=== PATIENT | male | born 1980 | race Caucasian/White ===

== ENCOUNTER 2025-10-03 02:40 | Inpatient (IN) ==
--- NOTE | 2025-10-03 03:13 | Emergency Department Note ---
History of Present Illness General Chief complaint: Abdominal Pain Stated complaint: ABD PAIN UPPER LEFT,VOMITING Time Seen by Provider: 10/03/25 02:53 History of Present Illness Maximum Pain Intensity: 10 This 45-year-old male who has been to [facility] and [place] ER already this week presents ER for ongoing nausea vomiting and upper abdominal pain. Bilirubin was 3.7 yesterday at [facility]. Patient occasionally uses marijuana. Not daily. 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 Drug of choice was cocaine. He would like to a hepatitis C ordered. Patient states has been feeling more fatigued. He does vape. He has not seen a doctor in several years. He has had a recent knee infection was on antibiotics. He cannot recall his antibiotics. Chest pain, dyspnea, cough, congestion, diarrhea. He states earlier this year he had chronic diarrhea that is now resolved. He now has been vomiting for the past week and unable to tolerate fluids. Drug allergy to codeine. Nothing else. Patient denies appendix has been surgically removed. No other surgeries. Past Med/Surg History Problem List (Updated 10/03/25 @ 05:26 by Courtney Marin PA-C) Nausea & vomiting (Acute) Hyperbilirubinemia (Acute) Abdominal pain, acute (Acute) Social History Smoking Status: Current every day smoker Tobacco Type: E-cigarettes / Vaping Preferred Language: Nauruan Feels Safe at Home: Yes Review of Systems A total of 10 systems reviewed and were otherwise negative Physical Exam Vital Signs Vital Signs - 24 hr 10/03/25 02:44 10/03/25 03:07 10/03/25 03:57 Temperature 37.1 C Temperature Source Temporal Artery Scan Pulse Rate 112 H 113 H 100 H Pulse Rate [Apical] Respiratory Rate 18 18 Respiratory Effort / Characteristics Non-Labored Spontaneous Respiratory Depth Normal Respiratory Pattern Regular Blood Pressure 148/98 H Blood Pressure [Right Arm] Blood Pressure Mean 114 Blood Pressure Mean [Right Arm] Blood Pressure Position Sitting Pulse Oximetry 99 95 Oxygen Delivery Method Room Air Room Air Sepsis Recent Fever Within 48 Hours No Sepsis New/Unexplained Change in Mental Status N/A Sepsis Action Taken by Nursing No Action Required 10/03/25 05:05 Temperature Temperature Source Pulse Rate Pulse Rate [Apical] 102 H Respiratory Rate 16 Respiratory Effort / Characteristics Respiratory Depth Normal Respiratory Pattern Blood Pressure Blood Pressure [Right Arm] 157/108 H Blood Pressure Mean Blood Pressure Mean [Right Arm] 124 Blood Pressure Position Pulse Oximetry Oxygen Delivery Method Sepsis Recent Fever Within 48 Hours Sepsis New/Unexplained Change in Mental Status Sepsis Action Taken by Nursing VITALS: Vitals are noted on the nurse's note and reviewed by myself. Vital signs stable. GENERAL: White male jaundiced appearing, in no acute distress, nondiaphoretic, well-developed well-nourished. SKIN: Capillary reflex less than 2 seconds. HEENT: Normocephalic. PERRLA. EOMI. icterus present, nares patent. Mucous membranes moist. Neck is supple without nuchal rigidity. HEART: Regular rate and rhythm LUNGS: Clear to auscultation bilaterally without wheezes, rales or rhonchi. No retractions or accessory muscle use. ABDOMEN: Positive bowel sounds x 4. Normal tympanic percussion. Soft, diffusely tender to palpation, without masses or organomegaly. Oliver sign negative. No guarding or rebound tenderness. no CVA tenderness MUSCULOSKELETAL: No gross musculoskeletal defects. NEURO: Patient was alert and oriented to person place and time. No focal neurological deficits. Course Administered Medications Discontinued Medications Diphenhydramine HCl (Diphenhydramine 50 Mg/Ml Vial) 25 mg IV NOW STA Stop: 10/03/25 03:08 Last Admin: 10/03/25 03:15 Dose: 25 mg Documented By: ROC Droperidol (Droperidol 5 Mg/2 Ml Vial) 1.25 mg IV ONE STA Stop: 10/03/25 03:08 Last Admin: 10/03/25 03:15 Dose: 1.25 mg Documented By: ROC Sodium Chloride (Nss) 1,000 mls @ 999 mls/hr IV .Q1H1M ONE Stop: 10/03/25 04:07 Last Infusion: 10/03/25 05:01 Dose: Infused Documented By: [email or web address] Admin: 10/03/25 03:16 Dose: 999 mls/hr Documented By: ROC Famotidine (Pepcid 20mg Iv Push) 20 mg in 5 mls @ 2.5 mls/min IV NOW STA Stop: 10/03/25 03:08 Last Admin: 10/03/25 03:15 Dose: 2.5 mls/min Documented By: ROC Ioversol (Optiray 320 125ml) 125 ml IV ONCE ONE Stop: 10/03/25 03:43 Last Admin: 10/03/25 03:42 Dose: 118 ml Documented By: CARLOS Medical Decision Making Medical Records Attestation: I reviewed the patient's medical records. Home Medications Current Medication List: was personally reviewed by me Laboratory Data Attestation: I reviewed the patient's lab results. 10/03/25 03:18 10/03/25 03:18 Lab Results 10/03/25 10/03/25 10/03/25 Range/Units 03:18 03:25 03:50 WBC 7.02 (4.8-10.8) K/ul RBC 5.68 (4.70-6.10) M/uL Hgb 15.9 (14.0-18.0) g/dL POC Hgb 16.3 (14.0-18.0) g/dl Hct 45.6 (42.0-52.0) % POC Hct 48 (42-52) % MCV 80.3 (80.0-100.0) fL MCH 30.6 (25.0-34.0) pg MCHC 38.1 H (32.0-36.0) g/dL RDW Std Deviation 33.6 L (36.4-46.3) fL RDW Coeff of Haja 11.8 (11.5-14.5) % Plt Count 284 (130-400) K/uL MPV 9.8 (9.4-12.4) fL Immature Gran % (Auto) 0.3 % Neut % (Auto) 72.0 % Lymph % (Auto) 21.2 % Motley % (Auto) 5.8 % Eos % (Auto) 0.1 % Baso % (Auto) 0.6 % Neut # (Auto) 5.05 (1.40-6.50) K/uL Lymph # (Auto) 1.49 (1.20-3.40) K/uL Motley # (Auto) 0.41 (0.11-0.59) K/uL Eos # (Auto) 0.01 (0.00-0.50) K/uL Baso # (Auto) 0.04 (0.00-0.20) K/uL Immature Gran # (Auto) 0.02 (0.01-0.20) K/uL Polychromasia 1+ PT 14.1 H (9.0-12.0) Seconds INR 1.4 H (0.9-1.1) APTT 21 (21-31) Seconds PTT Ratio 0.8 POC Sodium 136 (135-144) mmol/L Sodium 134 L (136-145) mmol/L POC Potassium 4.1 (3.3-5.0) mmol/L Potassium 4.0 (3.5-5.1) mmol/L POC Chloride 95 L (101-112) mmol/L Chloride 97 L (98-107) mmol/L Carbon Dioxide 27 (21-32) mmol/L POC Total CO2 24 (24-31) mmol/L Anion Gap 10 (3-11) POC Anion Gap 22.0 (16-25) mmol/L POC BUN 9 (7-18) mg/dl BUN 10 (6-23) mg/dl Creatinine 0.78 (0.6-1.4) mg/dl POC Creatinine 0.8 (0.6-1.3) mg/dl Est Cr Clr Drug Dosing 128.5 ml/min eGFR 110.69 BUN/Creatinine Ratio 12.8 (10-20) Glucose 145 H (70-99(Fasting)) mg/dl POC Glucose (other) 141 H (70-99) mg/dl Calcium 9.8 (8.6-10.3) mg/dl POC Ioniz Calcium Reynaldo 1.11 L (1.12-1.32) mmol/l Magnesium 1.9 (1.7-2.4) mg/dl Total Bilirubin 4.2 H (0.2-1.0) mg/dl AST 24 (13-39) U/L ALT 26 (7-52) U/L Alkaline Phosphatase 96 (34-104) U/L Troponin I High Sens 4.3 (0-20) pg/ml Total Protein 8.3 (6.0-8.3) gm/dl Albumin 4.9 (3.4-5.0) gm/dl Globulin 3.4 (2.5-4.0) gm/dl Albumin/Globulin Ratio 1.4 (0.9-2) Lipase 16 (11-82) U/L TSH 1.081 (0.300-4.500) uIu/ml Urine Color Urine Appearance (Clear) Urine pH (4.5-7.5) Ur Specific Matthews (1.000-1.030) Urine Protein (Negative) Urine Glucose (UA) (Negative) Urine Ketones (Negative) Urine Blood (Negative) Urine Nitrite (Negative) Urine Bilirubin (Negative) Urine Urobilinogen (Negative) Ur Leukocyte Esterase (Negative) Urine Comment Urine Opiates Screen (Neg) Ur Methadone, Qual (Neg) Urine Fentanyl Screen (Neg) Urine Barbiturates (Neg) Ur Phencyclidine (PCP) (Neg) U Amphetamin/Meth Scrn (Neg) MDMA (Ecstasy) Screen (Neg) U Benzodiazepines Scrn (Neg) Ur Cocaine Metabolite (Neg) U Marijuana (THC) Screen (Neg) EBV Capsid Ag IgG Ab Positive EBV Caps Ag IgG Sig Str 107.0 (< 18.0) U/mL EBV Capsid Ag IgM Ab Negative EBV Caps Ag IgM Sig Str < 10.0 (< 36.0) U/mL EBV Early Antigen IgG Negative (Negative) EBV EA Signal Strength < 5.0 (< 9.0) U/mL EBV Nuclear Antigen Ab Positive EBV Nucl Ag IgG Sig Str > 600.0 (< 18.0) U/mL EBV Interpretation See Comment Hep Bs Antigen Negative (Negative) Hepatitis C Antibody Prelim Positive A (Negative) Monoscreen Negative (Negative) 10/03/25 Range/Units 04:02 WBC (4.8-10.8) K/ul RBC (4.70-6.10) M/uL Hgb (14.0-18.0) g/dL POC Hgb (14.0-18.0) g/dl Hct (42.0-52.0) % POC Hct (42-52) % MCV (80.0-100.0) fL MCH (25.0-34.0) pg MCHC (32.0-36.0) g/dL RDW Std Deviation (36.4-46.3) fL RDW Coeff of Haja (11.5-14.5) % Plt Count (130-400) K/uL MPV (9.4-12.4) fL Immature Gran % (Auto) % Neut % (Auto) % Lymph % (Auto) % Motley % (Auto) % Eos % (Auto) % Baso % (Auto) % Neut # (Auto) (1.40-6.50) K/uL Lymph # (Auto) (1.20-3.40) K/uL Motley # (Auto) (0.11-0.59) K/uL Eos # (Auto) (0.00-0.50) K/uL Baso # (Auto) (0.00-0.20) K/uL Immature Gran # (Auto) (0.01-0.20) K/uL Polychromasia PT (9.0-12.0) Seconds INR (0.9-1.1) APTT (21-31) Seconds PTT Ratio POC Sodium (135-144) mmol/L Sodium (136-145) mmol/L POC Potassium (3.3-5.0) mmol/L Potassium (3.5-5.1) mmol/L POC Chloride (101-112) mmol/L Chloride (98-107) mmol/L Carbon Dioxide (21-32) mmol/L POC Total CO2 (24-31) mmol/L Anion Gap (3-11) POC Anion Gap (16-25) mmol/L POC BUN (7-18) mg/dl BUN (6-23) mg/dl Creatinine (0.6-1.4) mg/dl POC Creatinine (0.6-1.3) mg/dl Est Cr Clr Drug Dosing ml/min eGFR BUN/Creatinine Ratio (10-20) Glucose (70-99(Fasting)) mg/dl POC Glucose (other) (70-99) mg/dl Calcium (8.6-10.3) mg/dl POC Ioniz Calcium Reynaldo (1.12-1.32) mmol/l Magnesium (1.7-2.4) mg/dl Total Bilirubin (0.2-1.0) mg/dl AST (13-39) U/L ALT (7-52) U/L Alkaline Phosphatase (34-104) U/L Troponin I High Sens (0-20) pg/ml Total Protein (6.0-8.3) gm/dl Albumin (3.4-5.0) gm/dl Globulin (2.5-4.0) gm/dl Albumin/Globulin Ratio (0.9-2) Lipase (11-82) U/L TSH (0.300-4.500) uIu/ml Urine Color Yellow Urine Appearance Clear (Clear) Urine pH 7.5 (4.5-7.5) Ur Specific Matthews 1.027 (1.000-1.030) Urine Protein Negative (Negative) Urine Glucose (UA) Negative (Negative) Urine Ketones 1+ H (Negative) Urine Blood Negative (Negative) Urine Nitrite Negative (Negative) Urine Bilirubin Negative (Negative) Urine Urobilinogen Negative (Negative) Ur Leukocyte Esterase Negative (Negative) Urine Comment Urine Opiates Screen Neg (Neg) Ur Methadone, Qual Neg (Neg) Urine Fentanyl Screen Neg (Neg) Urine Barbiturates Neg (Neg) Ur Phencyclidine (PCP) Neg (Neg) U Amphetamin/Meth Scrn Pos H (Neg) MDMA (Ecstasy) Screen Neg (Neg) U Benzodiazepines Scrn Neg (Neg) Ur Cocaine Metabolite Neg (Neg) U Marijuana (THC) Screen Neg (Neg) EBV Capsid Ag IgG Ab EBV Caps Ag IgG Sig Str (< 18.0) U/mL EBV Capsid Ag IgM Ab EBV Caps Ag IgM Sig Str (< 36.0) U/mL EBV Early Antigen IgG (Negative) EBV EA Signal Strength (< 9.0) U/mL EBV Nuclear Antigen Ab EBV Nucl Ag IgG Sig Str (< 18.0) U/mL EBV Interpretation Hep Bs Antigen (Negative) Hepatitis C Antibody (Negative) Monoscreen (Negative) Imaging Data Attestation: I personally reviewed and interpreted this imaging study as follows: Radiologist's Impression: Abdomen/Pelvis CT 10/03/25 03:07 EXAM: CT abd pelvis IV con only CLINICAL HISTORY: abd pain, jaundice, history of IV drug use TECHNIQUE: Contiguous axial images were obtained from the level of the diaphragm to the pubic symphysis with intravenous contrast. Coronal and sagittal reconstructions were likewise performed and indicated to increase the sensitivity for detecting clinically relevant pathology. If IV contrast material had not been administered, the likelihood of detecting abnormalities relevant to the patient's condition would have been substantially decreased. CT scan was performed according to ALARA (as low as reasonably achievable). COMPARISON: None. FINDINGS: The visualized lung bases are clear. The liver is normal in size and reduced attenuation. No focal liver lesions are seen. There is no intra or extrahepatic biliary ductal dilatation. Hepatic vasculature is patent. The gallbladder is present. The spleen is enlarged in size, measuring about 14 cm. The pancreas, and adrenal glands are unremarkable. The kidneys are normal in size and attenuation. There is no hydronephrosis or perinephric fat stranding. No renal calculi or renal masses are identified. Few simple cortical cyst are noted in left kidneys The ureters are normal in caliber and no ureteral calculi are seen. The bladder shows diffuse wall thickening with subtle perivesical fat stranding - suggest possibility of cystitis- urine analysis correlation suggested Pelvic viscera are unremarkable. No focal or diffuse bowel wall thickening or evidence of bowel obstruction is identified. No imaging evidence of appendicitis. Abdominal and pelvic vasculature is patent. No adenopathy or fluid collections are seen. No aggressive appearing osseous lesions are identified. IMPRESSION: Hepatomegaly with hepatic steatosis Mild splenomegaly. The bladder shows diffuse wall thickening with subtle perivesical fat stranding - suggest possibility of cystitis- urine analysis correlation suggested No other abnormality seen. Electronically signed by Johnnie Elena 10-03-2025 04:21 AM Chest CTA 10/03/25 03:07 EXAM: CT angio chest PE protocol CLINICAL HISTORY: PE TECHNIQUE: Contiguous axial images were obtained from the neck base through the upper abdomen following intravenous administration of iodinated contrast material. Angiographic images were processed, 3D MIP images were acquired for interpretation. If IV contrast material had not been administered, the likelihood of detecting abnormalities relevant to the patient's condition would have been substantially decreased. Coronal and sagittal 3-D MIPs were likewise performed and indicated to increase the sensitivity of detectin diffuse clinically relevant pathology. CT scan was performed according to ALARA (as low as reasonably achievable). COMPARISON: None. FINDINGS: 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 Tiny calcified granuloma is noted in right lower lobe. Adequate contrast bolus without evidence of pulmonary embolism. The central airways are patent. The lungs are clear. No pleural effusion. The heart, aorta, and pulmonary arteries are of normal size and configuration. There are no appreciable coronary artery and aortic atherosclerotic calcifications. No pericardial effusion is identified. The thyroid is unremarkable. No mediastinal, hilar, or axillary lymphadenopathy is noted. No suspicious lytic or sclerotic osseous lesions are identified. 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 Tiny calcified granuloma is noted in right lower lobe. No evidence of pulmonary embolism or pulmonary disease. Electronically signed by Johnnie Elena 10-03-2025 04:11 AM MDM Narrative Prior records/ancillary studies reviewed. Triage Nursing notes reviewed. Additional history obtained from family. The patient's history was concerning for abdominal pain. Differential diagnosis: Etiologies such as appendicitis, diverticulitis, PUD, biliary pathology, UTI, pancreatitis, obstruction, mesenteric ischemia, aortic pathology, infections, inflammatory bowel disease, renal colic, as well as others were entertained. Physical examination findings: As above. ER treatment provided: An order was placed for continuous cardiac monitoring. The monitor shows a rate of 60-100 with a sinus rhythm per my Independent interpretation. IV fluids, droperidol, Pepcid and Benadryl were ordered On reassessment the patient felt better. Diagnostics interpreted by me: ECG: Ordered for abdominal pain EKG: Poor baseline, normal sinus, normal intervals, no acute ST-T wave changes, rate of 114. Impression sinus tachycardia poor baseline per my independent interpretation The labs Independently Interpreted by myself revealed elevated bilirubin. Preliminary screen for hep C positive. Amphetamines/meth positive and drug screen. No worrisome leukocytosis, stable H&H, stable platelets No UTI Imaging studies: Imaging was reviewed and read by radiology Consultation: A consultation was placed with the hospitalist. The case was discussed and diagnostics were reviewed. The patient was evaluated in the ER for further treatment. Exam and history seem consistent with ongoing nausea and vomiting and abdominal pain with rising bilirubin. This could be related to his hepatitis C. This is the patient's fourth ER visit for the past 2 days. They are requesting admission. Medicine was consulted the case was discussed. Patient will be evaluated for admission. By the evaluation outlined above emergent etiologies such as appendicitis, diverticulitis, PUD, UTI, pancreatitis, obstruction, mesenteric ischemia, aortic pathology, inflammatory bowel disease, renal colic, as well as others were deemed relatively unlikely. The pt informed about the findings as listed above. All questions were answered and pleased with the treatment. The chart was completed utilizing [employer] Speech voice recognition software. Grammatical errors, random word insertions, pronoun errors, and incomplete sentences are an occassional consequence of this system due to software limitations, ambient noise, and hardware issues. Any formal questions or concerns about the content, text, or information contained within the body of this dictation should be directly addressed to the physician assistant professor of marine biology for clarification. Impression & Plan Abdominal pain, acute, Hyperbilirubinemia, Nausea & vomiting Discharge Plan Visit Data Chief Complaint: Abdominal Pain Stated Complaint: ABD PAIN UPPER LEFT,VOMITING ED Provider: Scarlet Eastman ED Midlevel Provider: Courtney Marin Discharge Problem: Abdominal pain, acute, Hyperbilirubinemia, Nausea & vomiting Patient Disposition: Admitted As Inpatient Condition: Good Forms Stand Alone Forms: [facility] Referrals Referrals: PCP,NO [Primary Care Provider] -
[2025-10-03] MEDS: FAMOTIDINE 20MG IV PUSH 20 MG/5 ML SYR IV STA (03:15)
[2025-10-03] MEDS: diphenhydrAMINE 50 MG/ML VIAL IV STA (03:15)
[2025-10-03] MEDS: DROPERIDOL 5 MG/2 ML VIAL IV STA (03:15)
[2025-10-03] MEDS: SODIUM CHLORIDE 0.9% 1,000 ML IV ONE (03:16)
[2025-10-03] MEDS: OPTIRAY 320 125ml IV ONE (03:42)
[2025-10-03 04:01] LABS: Alanine Aminotransferase 26.0 U/L (7-52); Albumin Level 4.9 gm/dl (3.4-5.0); Alkaline Phosphatase 96.0 U/L (34-104); Anion Gap 10.0 (3-11); Bilirubin,Total 4.2 mg/dl (0.2-1.0); Blood Urea Nitrogen 10.0 mg/dl (6-23); Calcium 9.8 mg/dl (8.6-10.3); Carbon Dioxide 27.0 mmol/L (21-32); Chloride 97.0 mmol/L (98-107); Creatinine Clr Calc Pharmacy 128.5 ml/min; Glucose 145.0 mg/dl (70-99(Fasting)); Lipase 16.0 U/L (11-82); Magnesium 1.9 mg/dl (1.7-2.4); Potassium 4.0 mmol/L (3.5-5.1); Sodium 134.0 mmol/L (136-145)
[2025-10-03 04:09] LABS: Albumin Globulin Ratio 1.4 (0.9-2); Globulin 3.4 gm/dl (2.5-4.0); Total Protein 8.3 gm/dl (6.0-8.3)
[2025-10-03 04:11] LABS: Appearance Urine Clear (Clear); Glucose Urine UA Negative (Negative)
--- NOTE | 2025-10-03 04:11 | CT Scan Report ---
EXAM: CT angio chest PE protocol CLINICAL HISTORY: PE TECHNIQUE: Contiguous axial images were obtained from the neck base through the upper abdomen following intravenous administration of iodinated contrast material. Angiographic images were processed, 3D MIP images were acquired for interpretation. If IV contrast material had not been administered, the likelihood of detecting abnormalities relevant to the patient's condition would have been substantially decreased. Coronal and sagittal 3-D MIPs were likewise performed and indicated to increase the sensitivity of detectin diffuse clinically relevant pathology. CT scan was performed according to ALARA (as low as reasonably achievable). COMPARISON: None. FINDINGS: 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 Tiny calcified granuloma is noted in right lower lobe. Adequate contrast bolus without evidence of pulmonary embolism. The central airways are patent. The lungs are clear. No pleural effusion. The heart, aorta, and pulmonary arteries are of normal size and configuration. There are no appreciable coronary artery and aortic atherosclerotic calcifications. No pericardial effusion is identified. The thyroid is unremarkable. No mediastinal, hilar, or axillary lymphadenopathy is noted. No suspicious lytic or sclerotic osseous lesions are identified. 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 Tiny calcified granuloma is noted in right lower lobe. No evidence of pulmonary embolism or pulmonary disease. Electronically signed by Johnnie Elena 10-03-2025 04:11 AM
[2025-10-03 04:15] LABS: INR 1.4 (0.9-1.1); Partial Thromboplastin Time 21 Seconds (21-31); Prothrombin Time 14.1 Seconds (9.0-12.0)
--- NOTE | 2025-10-03 04:21 | CT Scan Report ---
EXAM: CT abd pelvis IV con only CLINICAL HISTORY: abd pain, jaundice, history of IV drug use TECHNIQUE: Contiguous axial images were obtained from the level of the diaphragm to the pubic symphysis with intravenous contrast. Coronal and sagittal reconstructions were likewise performed and indicated to increase the sensitivity for detecting clinically relevant pathology. If IV contrast material had not been administered, the likelihood of detecting abnormalities relevant to the patient's condition would have been substantially decreased. CT scan was performed according to ALARA (as low as reasonably achievable). COMPARISON: None. FINDINGS: The visualized lung bases are clear. The liver is normal in size and reduced attenuation. No focal liver lesions are seen. There is no intra or extrahepatic biliary ductal dilatation. Hepatic vasculature is patent. The gallbladder is present. The spleen is enlarged in size, measuring about 14 cm. The pancreas, and adrenal glands are unremarkable. The kidneys are normal in size and attenuation. There is no hydronephrosis or perinephric fat stranding. No renal calculi or renal masses are identified. Few simple cortical cyst are noted in left kidneys The ureters are normal in caliber and no ureteral calculi are seen. The bladder shows diffuse wall thickening with subtle perivesical fat stranding - suggest possibility of cystitis- urine analysis correlation suggested Pelvic viscera are unremarkable. No focal or diffuse bowel wall thickening or evidence of bowel obstruction is identified. No imaging evidence of appendicitis. Abdominal and pelvic vasculature is patent. No adenopathy or fluid collections are seen. No aggressive appearing osseous lesions are identified. IMPRESSION: Hepatomegaly with hepatic steatosis Mild splenomegaly. The bladder shows diffuse wall thickening with subtle perivesical fat stranding - suggest possibility of cystitis- urine analysis correlation suggested No other abnormality seen. Electronically signed by Johnnie Elena 10-03-2025 04:21 AM
[2025-10-03 04:33] LABS: EBV Nuclear Antigen IgG Ab Positive; EBV Nuclear Antigen IgG Quant > 600.0 U/mL (< 18.0)
[2025-10-03 04:34] LABS: EBV Early Antigen IgG Ab Negative (Negative); EBV Early Antigen IgG Quant < 5.0 U/mL (< 9.0); EBV IgM Antibody Negative; EBV IgM Quant < 10.0 U/mL (< 36.0)
[2025-10-03 04:35] LABS: EBV IgG Antibody Positive; EBV IgG Quant 107.0 U/mL (< 18.0)
[2025-10-03 05:00] LABS: Hep B Surface Ag with confirm Negative (Negative)
[2025-10-03 05:00] LABS: Thyroid Stimulating Hormone 1.081 uIu/ml (0.300-4.500)
[2025-10-03 05:04] LABS: Hematocrit (blood only) 45.6 % (42.0-52.0); Hemoglobin 15.9 g/dL (14.0-18.0); Mean Corpuscular Hemoglobin 30.6 pg (25.0-34.0); Mean Corpuscular Volume 80.3 fL (80.0-100.0); Platelet Count 284 K/uL (130-400); RDW Standard Deviation 33.6 fL (36.4-46.3); Red Blood Count 5.68 M/uL (4.70-6.10); White Blood Count 7.02 K/ul (4.8-10.8)
[2025-10-03 05:05] LABS: Immature Granulocytes # (auto) 0.02 K/uL (0.01-0.20); Immature Granulocytes % (auto) 0.3 %; Polychromasia 1+
[2025-10-03 05:09] LABS: Hep C Ab Rflx HepCQuant RNA Prelim Positive (Negative)
[2025-10-03 05:18] LABS: Amphetamines+Metham, Urine Pos (Neg); MDMA (Ecstacy), Urine Neg (Neg); Marijuana, Urine Neg (Neg)
--- NOTE | 2025-10-03 06:14 | History & Physical Report ---
Date of Service October 03, 2025 Assessment & Plan (1) Nausea & vomiting: Plan: 45-year-old male with past medical history significant for diabetes, ADHD, anxiety, ongoing drug abuse, history of hypertension, history of hepatitis C in the past several years ago status post treatment presents with ongoing abdominal pain and nausea and vomiting. Patient having left upper quad abdominal pain going on for about a week now. Associated with nausea and vomiting. This is his third ER visit in the last 1 week. Was at [facility] and [facility] ER. Yesterday at [facility] ER bilirubin was 3.7. Seems patient occasionally use marijuana. History of IV drug abuse in the past with cocaine. Patient recently snorted amphetamines. Denies doing IV drug abuse currently. Vaping for last about a year. Denies any alcohol use. Has some headache. Has some dizziness. No runny nose or sore throat. No cough. No difficulty swallowing. Denies any chest pain. No shortness of breath. No diarrhea or constipation. Micturating okay. No rash. Afebrile. Hemodynamics are okay. Patient has been not going to doctors for long time as per the . Persistent nausea and vomiting and abdominal pain For about a week Bilirubin 4.2. AST 424. ALT 26. Alkaline phos was 96. CT abdomen pelvis shows mild splenomegaly. Hepatomegaly with hepatic steatosis. CTA chest aneurysm dilatation of ascending aorta 4 cm. No PE. Tiny calcified granuloma in right lower lobe. Will keep patient n.p.o., IV fluids, IV pain meds., IV antiemetics as needed IV Pepcid Will follow repeat labs Consult GI in a.m. for further recommendations Hepatitis C Follow-up HCVRNA History of hepatitis C infection many years ago as per and was treated and seemed to cleared Seems ongoing drug use GI consulted Ongoing drug abuse and vaping On Subutex Counseling Diabetes Cut back on Lantus 10 as currently patient is n.p.o. Hold metformin Sliding scale Will monitor History of ADHD and anxiety Currently not any meds. Hypertension Used to be on lisinopril in the past but currently not taking any medications Will monitor Clonidine as needed for now DVT prophylaxis Lovenox Disposition Medical floor Full code. History of Present Illness Chief Complaint: 45-year-old male with past medical history significant for diabetes, ADHD, anxiety, ongoing drug abuse, history of hypertension, history of hepatitis C in the past several years ago status post treatment presents with ongoing abdominal pain and nausea and vomiting. Patient having left upper quad abdominal pain going on for about a week now. Associated with nausea and vomiting. This is his third ER visit in the last 1 week. Was at [facility] and [facility] ER. Yesterday at [facility] ER bilirubin was 3.7. Seems patient occasionally use marijuana. History of IV drug abuse in the past with cocaine. Patient recently snorted amphetamines. Denies doing IV drug abuse currently. Vaping for last about a year. Denies any alcohol use. Has some headache. Has some dizziness. No runny nose or sore throat. No cough. No difficulty swallowing. Denies any chest pain. No shortness of breath. No diarrhea or constipation. Micturating okay. No rash. Afebrile. Hemodynamics are okay. Patient has been not going to doctors for long time as per the . Past medical history. As mentioned above. Past surgical history. Appendectomy. Dental procedures. Social history. Vaping. History of IV drug abuse. Currently snorting amphetamines. No alcohol use. Smokes marijuana. Family history. Mother had melanoma. Father has history of addiction. Primary Care Provider: NO PCP Home Medications Medication Instructions Recorded Confirmed Type buprenorphine HCl 8 mg sublingual 8 mg sublingual BID 10/03/25 10/03/25 History tablet insulin glargine 100 unit/mL (3 20 unit subcut DAILY 10/03/25 10/03/25 History mL) subcutaneous pen (Lantus Solostar U-100 Insulin) insulin lispro 100 unit/mL 1 sliding scale dose subcut 10/03/25 10/03/25 History subcutaneous pen USEASDIRECTD metformin 500 mg tablet 500 mg PO BID 10/03/25 10/03/25 History Past Med/Surg History Problem List (Updated 10/03/25 @ 05:26 by Courtney Marin PA-C) Nausea & vomiting (Acute) Hyperbilirubinemia (Acute) Abdominal pain, acute (Acute) Social History Smoking Status: Current every day smoker Tobacco Type: E-cigarettes / Vaping Preferred Language: Persian Feels Safe at Home: Yes Review of Systems Review of Systems: All systems reviewed & are unremarkable except as noted in HPI & below Physical Exam Physical Exam: General- Not in acute distress Head- atraumatic Eyes- PERRL. ENT- oropharynx clear Neck- supple, no JVD. Lungs- clear to auscultation no wheezing or crackles. Heart- regular rhythm; no murmur, no gallop. Abdomen- normal bowel sounds, soft, diffuse discomfort more in Left Upper quadrant, no distension Extremities- no pretibial edema, no erythema seen Neuro- alert, oriented PERRL, no facial palsy; no dysarthria; moves extremities Results & Data Results & Data Vital Signs (Past 12 Hours) Vital Signs Temp Pulse Pulse Resp BP BP Pulse Ox 10/03/25 05:05 102 H 16 157/108 H 10/03/25 03:57 100 H 18 95 10/03/25 03:07 113 H 10/03/25 02:44 37.1 C 112 H 18 148/98 H 99 O2 Del Method 10/03/25 05:05 10/03/25 03:57 Room Air 10/03/25 03:07 10/03/25 02:44 Room Air Diagnostic Findings Laboratory Results WBC 7.02 K/ul (4.8-10.8) 10/03/25 03:18 RBC 5.68 M/uL (4.70-6.10) 10/03/25 03:18 Hgb 15.9 g/dL (14.0-18.0) 10/03/25 03:18 POC Hgb 16.3 g/dl (14.0-18.0) 10/03/25 03:25 Hct 45.6 % (42.0-52.0) 10/03/25 03:18 POC Hct 48 % (42-52) 10/03/25 03:25 MCV 80.3 fL (80.0-100.0) 10/03/25 03:18 MCH 30.6 pg (25.0-34.0) 10/03/25 03:18 MCHC 38.1 g/dL (32.0-36.0) H 10/03/25 03:18 RDW Std Deviation 33.6 fL (36.4-46.3) L 10/03/25 03:18 RDW Coeff of Haja 11.8 % (11.5-14.5) 10/03/25 03:18 Plt Count 284 K/uL (130-400) 10/03/25 03:18 MPV 9.8 fL (9.4-12.4) 10/03/25 03:18 Immature Gran % (Auto) 0.3 % 10/03/25 03:18 Neut % (Auto) 72.0 % 10/03/25 03:18 Lymph % (Auto) 21.2 % 10/03/25 03:18 [place] % (Auto) 5.8 % 10/03/25 03:18 Eos % (Auto) 0.1 % 10/03/25 03:18 Baso % (Auto) 0.6 % 10/03/25 03:18 Neut # (Auto) 5.05 K/uL (1.40-6.50) 10/03/25 03:18 Lymph # (Auto) 1.49 K/uL (1.20-3.40) 10/03/25 03:18 [place] # (Auto) 0.41 K/uL (0.11-0.59) 10/03/25 03:18 Eos # (Auto) 0.01 K/uL (0.00-0.50) 10/03/25 03:18 Baso # (Auto) 0.04 K/uL (0.00-0.20) 10/03/25 03:18 Immature Gran # (Auto) 0.02 K/uL (0.01-0.20) 10/03/25 03:18 Polychromasia 1+ 10/03/25 03:18 PT 14.1 Seconds (9.0-12.0) H 10/03/25 03:18 INR 1.4 (0.9-1.1) H 10/03/25 03:18 APTT 21 Seconds (21-31) 10/03/25 03:18 PTT Ratio 0.8 10/03/25 03:18 POC Sodium 136 mmol/L (135-144) 10/03/25 03:25 Sodium 134 mmol/L (136-145) L 10/03/25 03:18 POC Potassium 4.1 mmol/L (3.3-5.0) 10/03/25 03:25 Potassium 4.0 mmol/L (3.5-5.1) 10/03/25 03:18 POC Chloride 95 mmol/L (101-112) L 10/03/25 03:25 Chloride 97 mmol/L (98-107) L 10/03/25 03:18 Carbon Dioxide 27 mmol/L (21-32) 10/03/25 03:18 POC Total CO2 24 mmol/L (24-31) 10/03/25 03:25 Anion Gap 10 (3-11) 10/03/25 03:18 POC Anion Gap 22.0 mmol/L (16-25) 10/03/25 03:25 POC BUN 9 mg/dl (7-18) 10/03/25 03:25 BUN 10 mg/dl (6-23) 10/03/25 03:18 Creatinine 0.78 mg/dl (0.6-1.4) 10/03/25 03:18 POC Creatinine 0.8 mg/dl (0.6-1.3) 10/03/25 03:25 Est Cr Clr Drug Dosing 128.5 ml/min 10/03/25 03:18 eGFR 110.69 10/03/25 03:18 BUN/Creatinine Ratio 12.8 (10-20) 10/03/25 03:18 Glucose 145 mg/dl (70-99(Fasting)) H 10/03/25 03:18 POC Glucose (other) 141 mg/dl (70-99) H 10/03/25 03:25 Calcium 9.8 mg/dl (8.6-10.3) 10/03/25 03:18 POC Ioniz Calcium Reynaldo 1.11 mmol/l (1.12-1.32) L 10/03/25 03:25 Magnesium 1.9 mg/dl (1.7-2.4) 10/03/25 03:18 Total Bilirubin 4.2 mg/dl (0.2-1.0) H 10/03/25 03:18 AST 24 U/L (13-39) 10/03/25 03:18 ALT 26 U/L (7-52) 10/03/25 03:18 Alkaline Phosphatase 96 U/L (34-104) 10/03/25 03:18 Troponin I High Sens 4.3 pg/ml (0-20) 10/03/25 03:18 Total Protein 8.3 gm/dl (6.0-8.3) 10/03/25 03:18 Albumin 4.9 gm/dl (3.4-5.0) 10/03/25 03:18 Globulin 3.4 gm/dl (2.5-4.0) 10/03/25 03:18 Albumin/Globulin Ratio 1.4 (0.9-2) 10/03/25 03:18 Lipase 16 U/L (11-82) 10/03/25 03:18 TSH 1.081 uIu/ml (0.300-4.500) 10/03/25 03:18 Urine Color Yellow 10/03/25 04:02 Urine Appearance Clear (Clear) 10/03/25 04:02 Urine pH 7.5 (4.5-7.5) 10/03/25 04:02 Ur Specific J[place] 1.027 (1.000-1.030) 10/03/25 04:02 Urine Protein Negative (Negative) 10/03/25 04:02 Urine Glucose (UA) Negative (Negative) 10/03/25 04:02 Urine Ketones 1+ (Negative) H 10/03/25 04:02 Urine Blood Negative (Negative) 10/03/25 04:02 Urine Nitrite Negative (Negative) 10/03/25 04:02 Urine Bilirubin Negative (Negative) 10/03/25 04:02 Urine Urobilinogen Negative (Negative) 10/03/25 04:02 Ur Leukocyte Esterase Negative (Negative) 10/03/25 04:02 Urine Comment 10/03/25 04:02 Urine Opiates Screen Neg (Neg) 10/03/25 04:02 Ur Methadone, Qual Neg (Neg) 10/03/25 04:02 Urine Fentanyl Screen Neg (Neg) 10/03/25 04:02 Urine Barbiturates Neg (Neg) 10/03/25 04:02 Ur Phencyclidine (PCP) Neg (Neg) 10/03/25 04:02 U Amphetamin/Meth Scrn Pos (Neg) H 10/03/25 04:02 MDMA (Ecstasy) Screen Neg (Neg) 10/03/25 04:02 U Benzodiazepines Scrn Neg (Neg) 10/03/25 04:02 Ur Cocaine Metabolite Neg (Neg) 10/03/25 04:02 U Marijuana (THC) Screen Neg (Neg) 10/03/25 04:02 EBV Capsid Ag IgG Ab Positive 10/03/25 03:18 EBV Caps Ag IgG Sig Str 107.0 U/mL (< 18.0) 10/03/25 03:18 EBV Capsid Ag IgM Ab Negative 10/03/25 03:18 EBV Caps Ag IgM Sig Str < 10.0 U/mL (< 36.0) 10/03/25 03:18 EBV Early Antigen IgG Negative (Negative) 10/03/25 03:18 EBV EA Signal Strength < 5.0 U/mL (< 9.0) 10/03/25 03:18 EBV Nuclear Antigen Ab Positive 10/03/25 03:18 EBV Nucl Ag IgG Sig Str > 600.0 U/mL (< 18.0) 10/03/25 03:18 EBV Interpretation See Comment 10/03/25 03:18 Hep Bs Antigen Negative (Negative) 10/03/25 03:50 Hepatitis C Antibody Prelim Positive (Negative) A 10/03/25 03:50 Monoscreen Negative (Negative) 10/03/25 03:18 Impressions Abdomen/Pelvis CT 10/03/25 03:07 EXAM: CT abd pelvis IV con only CLINICAL HISTORY: abd pain, jaundice, history of IV drug use TECHNIQUE: Contiguous axial images were obtained from the level of the diaphragm to the pubic symphysis with intravenous contrast. Coronal and sagittal reconstructions were likewise performed and indicated to increase the sensitivity for detecting clinically relevant pathology. If IV contrast material had not been administered, the likelihood of detecting abnormalities relevant to the patient's condition would have been substantially decreased. CT scan was performed according to ALARA (as low as reasonably achievable). COMPARISON: None. FINDINGS: The visualized lung bases are clear. The liver is normal in size and reduced attenuation. No focal liver lesions are seen. There is no intra or extrahepatic biliary ductal dilatation. Hepatic vasculature is patent. The gallbladder is present. The spleen is enlarged in size, measuring about 14 cm. The pancreas, and adrenal glands are unremarkable. The kidneys are normal in size and attenuation. There is no hydronephrosis or perinephric fat stranding. No renal calculi or renal masses are identified. Few simple cortical cyst are noted in left kidneys The ureters are normal in caliber and no ureteral calculi are seen. The bladder shows diffuse wall thickening with subtle perivesical fat stranding - suggest possibility of cystitis- urine analysis correlation suggested Pelvic viscera are unremarkable. No focal or diffuse bowel wall thickening or evidence of bowel obstruction is identified. No imaging evidence of appendicitis. Abdominal and pelvic vasculature is patent. No adenopathy or fluid collections are seen. No aggressive appearing osseous lesions are identified. IMPRESSION: Hepatomegaly with hepatic steatosis Mild splenomegaly. The bladder shows diffuse wall thickening with subtle perivesical fat stranding - suggest possibility of cystitis- urine analysis correlation suggested No other abnormality seen. Electronically signed by Johnnie Elena 10-03-2025 04:21 AM Chest CTA 10/03/25 03:07 EXAM: CT angio chest PE protocol CLINICAL HISTORY: PE TECHNIQUE: Contiguous axial images were obtained from the neck base through the upper abdomen following intravenous administration of iodinated contrast material. Angiographic images were processed, 3D MIP images were acquired for interpretation. If IV contrast material had not been administered, the likelihood of detecting abnormalities relevant to the patient's condition would have been substantially decreased. Coronal and sagittal 3-D MIPs were likewise performed and indicated to increase the sensitivity of detectin diffuse clinically relevant pathology. CT scan was performed according to ALARA (as low as reasonably achievable). COMPARISON: None. FINDINGS: 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 Tiny calcified granuloma is noted in right lower lobe. Adequate contrast bolus without evidence of pulmonary embolism. The central airways are patent. The lungs are clear. No pleural effusion. The heart, aorta, and pulmonary arteries are of normal size and configuration. There are no appreciable coronary artery and aortic atherosclerotic calcifications. No pericardial effusion is identified. The thyroid is unremarkable. No mediastinal, hilar, or axillary lymphadenopathy is noted. No suspicious lytic or sclerotic osseous lesions are identified. 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 Tiny calcified granuloma is noted in right lower lobe. No evidence of pulmonary embolism or pulmonary disease. Electronically signed by Johnnie Elena 10-03-2025 04:11 AM Code Status & VTE Plan VTE Prophylaxis Plan VTE Prophylaxis will be ordered: Yes
[2025-10-03] MEDS ORDERED: GLUCOSE 10 TAB/TUBE PO PRN (08:52)
[2025-10-03] MEDS ORDERED: DEXTROSE 50% 50 ML SYRINGE IV PRN (08:52)
[2025-10-03] MEDS ORDERED: GLUCOSE 40% GEL 15 GM TUBE PO PRN (08:52)
[2025-10-03] MEDS ORDERED: GLUCAGON FOR INJ 1 MG VIAL SQ PRN (08:52)
[2025-10-03] MEDS ORDERED: CARBOHYDRATES FOR HYPOGLYCEMIA PO PRN (08:52)
[2025-10-03] MEDS: INSULIN ASPART PER UNIT CHARGE SC SCH (08:59)
[2025-10-03] MEDS: HYDROmorphone INJ 0.5 MG/0.5 ML SYR IV PRN ×2 (09:10→13:54)
[2025-10-03] MEDS: LACTATED RINGER'S 1,000 ML IV SCH (09:45)
[2025-10-03] MEDS: LANTUS PER UNIT CHARGE SQ SCH (09:47)
[2025-10-03] MEDS: ONDANSETRON INJ 2 MG/ML 2 ML VIAL IV PRN (09:49)
--- NOTE | 2025-10-03 09:49 | Gastrointestinal Consultation ---
Date of Consultation October 03, 2025 Assessment & Plan (1) Nausea & vomiting: Differential diagnosis includes gastroenteritis, drug-induced due to recent amphetamine use, diabetic gastroparesis gastritis or peptic ulcer disease. To also consider biliary pathology in light of possible history of gallstones. Will continue symptomatic relief with Benadryl which seems to be most effective. Would avoid narcotics with his history of drug use. Recommend obtaining an abdominal ultrasound to exclude gallstone disease. Consider endoscopic evaluation if no improvement over the next 24 hours. (2) Hyperbilirubinemia: History of Present Illness Reason for Consultation: Nausea vomiting and abdominal pain Attending Physician: Barry Velasquez MD History of Present Illness Patient presents with a 1 week history of intractable nausea vomiting and abdominal pain. Started suddenly. Occurred at the time he did some amphetamines. He has a history of drug abuse but had been abstinent until recent relapse. He does use marijuana but has not used it in the last several weeks. No other illicit drug use that he claims. He had a similar episode approximately 6 months ago which was felt to be due to gastritis was seen in the local emergency room and discharged. He now presents with worsening symptoms. He has a past history of hepatitis C. He has a history of diabetes. Was told at 1 point that he had sludge or gallstones. Allergies Allergy/AdvReac Type Severity Reaction Status Date / Time codeine Allergy Hives Verified 10/03/25 08:53 Home Medications Medication Instructions Recorded Confirmed Type buprenorphine HCl 8 mg sublingual 8 mg sublingual BID 10/03/25 10/03/25 History tablet insulin glargine 100 unit/mL (3 20 unit subcut DAILY 10/03/25 10/03/25 History mL) subcutaneous pen (Lantus Solostar U-100 Insulin) insulin lispro 100 unit/mL 1 sliding scale dose subcut 10/03/25 10/03/25 History subcutaneous pen USEASDIRECTD metformin 500 mg tablet 500 mg PO BID 10/03/25 10/03/25 History Patient History Social History Smoking Status: Current every day smoker Tobacco Type: E-cigarettes / Vaping Preferred Language: Bulgarian Feels Safe at Home: Yes Review of Systems Review of Systems: No fever No chills No SOB No CP GI as per HPI Physical Exam Physical Exam: HENT No masses Chest clear to A Cor S1, S2 physiologic Abd: softer generalized tenderness worse with abdominal wall muscle contraction consistent with a positive Carnett's sign Ext no edema Results & Data Vital Signs (Past 12 Hours) Vital Signs Temp Pulse Pulse Resp BP BP Pulse Ox 10/03/25 08:19 98 H 16 150/109 H 96 10/03/25 08:00 98 H 12 141/101 H 97 10/03/25 07:30 97 H 16 96 10/03/25 07:06 92 H 10/03/25 07:00 91 H 17 189/128 H 97 10/03/25 05:05 102 H 16 157/108 H 10/03/25 03:57 100 H 18 95 10/03/25 03:07 113 H 10/03/25 02:44 37.1 C 112 H 18 148/98 H 99 O2 Del Method 10/03/25 08:19 Room Air 10/03/25 08:00 10/03/25 07:30 10/03/25 07:06 10/03/25 07:00 10/03/25 05:05 10/03/25 03:57 Room Air 10/03/25 03:07 10/03/25 02:44 Room Air Laboratory Results Laboratory Results - last 48 hr 10/03/25 10/03/25 10/03/25 03:18 03:25 03:50 WBC 7.02 RBC 5.68 Hgb 15.9 POC Hgb 16.3 Hct 45.6 POC Hct 48 MCV 80.3 MCH 30.6 MCHC 38.1 H RDW Std Deviation 33.6 L RDW Coeff of [place] 11.8 Plt Count 284 MPV 9.8 Immature Gran % (Auto) 0.3 Neut % (Auto) 72.0 Lymph % (Auto) 21.2 [place] % (Auto) 5.8 Eos % (Auto) 0.1 Baso % (Auto) 0.6 Neut # (Auto) 5.05 Lymph # (Auto) 1.49 [place] # (Auto) 0.41 Eos # (Auto) 0.01 Baso # (Auto) 0.04 Immature Gran # (Auto) 0.02 Polychromasia 1+ PT 14.1 H INR 1.4 H APTT 21 PTT Ratio 0.8 POC Sodium 136 Sodium 134 L POC Potassium 4.1 Potassium 4.0 POC Chloride 95 L Chloride 97 L Carbon Dioxide 27 POC Total CO2 24 Anion Gap 10 POC Anion Gap 22.0 POC BUN 9 BUN 10 Creatinine 0.78 POC Creatinine 0.8 Est Cr Clr Drug Dosing 128.5 eGFR 110.69 BUN/Creatinine Ratio 12.8 Glucose 145 H POC Glucose POC Glucose (other) 141 H Calcium 9.8 POC Ioniz Calcium Reynaldo 1.11 L Magnesium 1.9 Total Bilirubin 4.2 H AST 24 ALT 26 Alkaline Phosphatase 96 Troponin I High Sens 4.3 Total Protein 8.3 Albumin 4.9 Globulin 3.4 Albumin/Globulin Ratio 1.4 Lipase 16 TSH 1.081 Urine Color Urine Appearance Urine pH Ur Specific [place] Urine Protein Urine Glucose (UA) Urine Ketones Urine Blood Urine Nitrite Urine Bilirubin Urine Urobilinogen Ur Leukocyte Esterase Urine Comment Urine Opiates Screen Ur Methadone, Qual Urine Fentanyl Screen Urine Barbiturates Ur Phencyclidine (PCP) U Amphetamin/Meth Scrn MDMA (Ecstasy) Screen U Benzodiazepines Scrn Ur Cocaine Metabolite U Marijuana (THC) Screen EBV Capsid Ag IgG Ab Positive EBV Caps Ag IgG Sig Str 107.0 EBV Capsid Ag IgM Ab Negative EBV Caps Ag IgM Sig Str < 10.0 EBV Early Antigen IgG Negative EBV EA Signal Strength < 5.0 EBV Nuclear Antigen Ab Positive EBV Nucl Ag IgG Sig Str > 600.0 EBV Interpretation See Comment Hep Bs Antigen Negative Hepatitis C Antibody Prelim Positive A Monoscreen Negative 10/03/25 10/03/25 04:02 08:38 WBC RBC Hgb POC Hgb Hct POC Hct MCV MCH MCHC RDW Std Deviation RDW Coeff of [place] Plt Count MPV Immature Gran % (Auto) Neut % (Auto) Lymph % (Auto) [place] % (Auto) Eos % (Auto) Baso % (Auto) Neut # (Auto) Lymph # (Auto) [place] # (Auto) Eos # (Auto) Baso # (Auto) Immature Gran # (Auto) Polychromasia PT INR APTT PTT Ratio POC Sodium Sodium POC Potassium Potassium POC Chloride Chloride Carbon Dioxide POC Total CO2 Anion Gap POC Anion Gap POC BUN BUN Creatinine POC Creatinine Est Cr Clr Drug Dosing eGFR BUN/Creatinine Ratio Glucose POC Glucose 123 H POC Glucose (other) Calcium POC Ioniz Calcium Reynaldo Magnesium Total Bilirubin AST ALT Alkaline Phosphatase Troponin I High Sens Total Protein Albumin Globulin Albumin/Globulin Ratio Lipase TSH Urine Color Yellow Urine Appearance Clear Urine pH 7.5 Ur Specific [place] 1.027 Urine Protein Negative Urine Glucose (UA) Negative Urine Ketones 1+ H Urine Blood Negative Urine Nitrite Negative Urine Bilirubin Negative Urine Urobilinogen Negative Ur Leukocyte Esterase Negative Urine Comment Urine Opiates Screen Neg Ur Methadone, Qual Neg Urine Fentanyl Screen Neg Urine Barbiturates Neg Ur Phencyclidine (PCP) Neg U Amphetamin/Meth Scrn Pos H MDMA (Ecstasy) Screen Neg U Benzodiazepines Scrn Neg Ur Cocaine Metabolite Neg U Marijuana (THC) Screen Neg EBV Capsid Ag IgG Ab EBV Caps Ag IgG Sig Str EBV Capsid Ag IgM Ab EBV Caps Ag IgM Sig Str EBV Early Antigen IgG EBV EA Signal Strength EBV Nuclear Antigen Ab EBV Nucl Ag IgG Sig Str EBV Interpretation Hep Bs Antigen Hepatitis C Antibody Monoscreen Diagnostic Findings Abdomen/Pelvis CT 10/03/25 03:07 EXAM: CT abd pelvis IV con only CLINICAL HISTORY: abd pain, jaundice, history of IV drug use TECHNIQUE: Contiguous axial images were obtained from the level of the diaphragm to the pubic symphysis with intravenous contrast. Coronal and sagittal reconstructions were likewise performed and indicated to increase the sensitivity for detecting clinically relevant pathology. If IV contrast material had not been administered, the likelihood of detecting abnormalities relevant to the patient's condition would have been substantially decreased. CT scan was performed according to ALARA (as low as reasonably achievable). COMPARISON: None. FINDINGS: The visualized lung bases are clear. The liver is normal in size and reduced attenuation. No focal liver lesions are seen. There is no intra or extrahepatic biliary ductal dilatation. Hepatic vasculature is patent. The gallbladder is present. The spleen is enlarged in size, measuring about 14 cm. The pancreas, and adrenal glands are unremarkable. The kidneys are normal in size and attenuation. There is no hydronephrosis or perinephric fat stranding. No renal calculi or renal masses are identified. Few simple cortical cyst are noted in left kidneys The ureters are normal in caliber and no ureteral calculi are seen. The bladder shows diffuse wall thickening with subtle perivesical fat stranding - suggest possibility of cystitis- urine analysis correlation suggested Pelvic viscera are unremarkable. No focal or diffuse bowel wall thickening or evidence of bowel obstruction is identified. No imaging evidence of appendicitis. Abdominal and pelvic vasculature is patent. No adenopathy or fluid collections are seen. No aggressive appearing osseous lesions are identified. IMPRESSION: Hepatomegaly with hepatic steatosis Mild splenomegaly. The bladder shows diffuse wall thickening with subtle perivesical fat stranding - suggest possibility of cystitis- urine analysis correlation suggested No other abnormality seen. Electronically signed by Johnnie Elena 10-03-2025 04:21 AM Chest CTA 10/03/25 03:07 EXAM: CT angio chest PE protocol CLINICAL HISTORY: PE TECHNIQUE: Contiguous axial images were obtained from the neck base through the upper abdomen following intravenous administration of iodinated contrast material. Angiographic images were processed, 3D MIP images were acquired for interpretation. If IV contrast material had not been administered, the likelihood of detecting abnormalities relevant to the patient's condition would have been substantially decreased. Coronal and sagittal 3-D MIPs were likewise performed and indicated to increase the sensitivity of detectin diffuse clinically relevant pathology. CT scan was performed according to ALARA (as low as reasonably achievable). COMPARISON: None. FINDINGS: 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 Tiny calcified granuloma is noted in right lower lobe. Adequate contrast bolus without evidence of pulmonary embolism. The central airways are patent. The lungs are clear. No pleural effusion. The heart, aorta, and pulmonary arteries are of normal size and configuration. There are no appreciable coronary artery and aortic atherosclerotic calcifications. No pericardial effusion is identified. The thyroid is unremarkable. No mediastinal, hilar, or axillary lymphadenopathy is noted. No suspicious lytic or sclerotic osseous lesions are identified. 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 Tiny calcified granuloma is noted in right lower lobe. No evidence of pulmonary embolism or pulmonary disease. Electronically signed by Johnnie Elena 10-03-2025 04:11 AM PG Care Time/CCT Total # of Minutes Spent Total Time Spent with Patient: Total time spent is greater than 50% in coordination of care (as documented) at patient's floor/unit and/or counseling patient: Coding Level of Care Code 38951 IN/OBS CONSULT LVL 3,45M Diagnoses Nausea & vomiting R11.2 Hyperbilirubinemia E80.6
[2025-10-03] MEDS: FAMOTIDINE 20MG IV PUSH 20 MG/5 ML SYR IV SCH (10:41)
[2025-10-03] MEDS: ENOXAPARIN INJ 40 MG/0.4 ML SYR SQ SCH (10:45)
[2025-10-03] MEDS: diphenhydrAMINE 50 MG/ML VIAL IV PRN (10:54)
--- NOTE | 2025-10-03 15:48 | Hospitalist Progress Note ---
Date of Service October 03, 2025 Assessment & Plan (1) Nausea & vomiting: Plan: 45-year-old male with past medical history significant for diabetes, ADHD, anxiety, ongoing drug abuse, history of hypertension, history of hepatitis C in the past several years ago status post treatment presents with ongoing abdominal pain and nausea and vomiting. Patient having left upper quad abdominal pain going on for about a week now. Associated with nausea and vomiting. This is his third ER visit in the last 1 week. Was at [facility] ER. Yesterday at [facility] ER bilirubin was 3.7. Seems patient occasionally use marijuana. History of IV drug abuse in the past with cocaine. Patient recently snorted amphetamines. Denies doing IV drug abuse currently. Vaping for last about a year. Denies any alcohol use. Has some headache. Has some dizziness. No runny nose or sore throat. No cough. No difficulty swallowing. Denies any chest pain. No shortness of breath. No diarrhea or constipation. Micturating okay. No rash. Afebrile. Hemodynamics are okay. Patient has been not going to doctors for long time as per the . Persistent nausea and vomiting and abdominal pain For about a week Causes are multifactorial::Likely secondary to use of multiple drugs including marijuana, cocaine, amphetamines and trying to cut down the doses of methadone Bilirubin 4.2. AST 424. ALT 26. Alkaline phos was 96. CT abdomen pelvis shows mild splenomegaly. Hepatomegaly with hepatic steatosis. CTA chest aneurysm dilatation of ascending aorta 4 cm. No PE. Tiny calcified granuloma in right lower lobe. Will keep patient n.p.o., IV fluids, IV pain meds., IV antiemetics as needed IV Pepcid Appreciate GI input and recommendation Clinically not any better yet and will be given intravenous Dilaudid as needed to control pain and symptomatic management of nausea and vomiting Hepatitis C Follow-up HCVRNA History of hepatitis C infection many years ago as per and was treated and seemed to cleared Seems ongoing drug use GI consulted Ongoing drug abuse and vaping On Subutex He has been cutting down Subutex and now he is getting 4 mg twice daily Diabetes Cut back on Lantus 10 as currently patient is n.p.o. Hold metformin Sliding scale Will monitor History of ADHD and anxiety Currently not any meds. Hypertension Used to be on lisinopril in the past but currently not taking any medications Will monitor Clonidine as needed for now DVT prophylaxis Lovenox Disposition Medical floor Full code. I spent a total of 57 minutes examining the patient, discussion about the results of investigations and also managing care. Dr Logan Velasquez Admission and Anticipated Discharge Date Admission Date: October 03, 2025 Subjective 10/03/2025 The patient was seen and examined in medical floor He has been complaining of severe abdominal pain with nausea and vomiting Clinically not any better Denies any chest pain, palpitation or shortness of breath. No fever and no chills Review of Systems Review of Systems: All systems reviewed and are unremarkable except as noted below Physical Exam Physical Exam: Lying in bed with acute distress due to abdominal pain Constitutional: well developed, well nourished, + ill appearing and average body habitus Eyes: PERRL, conjunctivae normal, anicteric sclerae ENMT: external ear and nose normal, oropharynx normal Neck: trachea midline, no thyromegaly Respiratory: no respiratory distress Auscultation: + lungs not clear to auscultation Cardiovascular: Rate/Rhythm: regular rate, regular rhythm and + tachycardic Heart Sounds: normal S1 and normal S2; no murmur Extremities: no edema Gastrointestinal (Abdomen): Inspection/Auscultation: normal bowel sounds; abdomen not distended Percussion/Palpation: + abdomen tender ( tender all over no guarding and no rigidity) and abdomen soft Musculoskeletal: no acute arthritis involving any of the joint Neurologic: normal touch/pain/proprioception and moves all extremities; no focal motor deficits Lymphatic: no cervical or axillary lymphadenopathy Results & Data Results & Data Vital Signs (Past 12 Hours) Vital Signs Temp Pulse Pulse Pulse Resp BP BP 10/03/25 15:16 36.9 C 104 H 17 154/98 H 10/03/25 08:40 36.7 C 93 H 18 148/90 H 10/03/25 08:19 98 H 16 150/109 H 10/03/25 08:00 98 H 12 141/101 H 10/03/25 07:30 97 H 16 10/03/25 07:06 92 H 10/03/25 07:00 91 H 17 189/128 H 10/03/25 05:05 102 H 16 157/108 H 10/03/25 03:57 100 H 18 Pulse Ox O2 Del Method 10/03/25 15:16 99 Room Air 12/25/25 08:40 97 Room Air 10/03/25 08:19 96 Room Air 10/03/25 08:00 97 10/03/25 07:30 96 10/03/25 07:06 10/03/25 07:00 97 10/03/25 05:05 10/03/25 03:57 95 Room Air Laboratory Results Short CBC 10/03/25 Range/Units 03:18 WBC 7.02 (4.8-10.8) K/ul Hgb 15.9 (14.0-18.0) g/dL Hct 45.6 (42.0-52.0) % Plt Count 284 (130-400) K/uL BMP 10/03/25 03:18 Sodium 134 L Potassium 4.0 Chloride 97 L Carbon Dioxide 27 BUN 10 Creatinine 0.78 Glucose 145 H Calcium 9.8 Liver Function 10/03/25 Range/Units 03:18 Total Bilirubin 4.2 H (0.2-1.0) mg/dl AST 24 (13-39) U/L ALT 26 (7-52) U/L Alkaline Phosphatase 96 (34-104) U/L Albumin 4.9 (3.4-5.0) gm/dl Urine 10/03/25 Range/Units 04:02 Urine Color Yellow Urine Appearance Clear (Clear) Urine pH 7.5 (4.5-7.5) Ur Specific [place] 1.027 (1.000-1.030) Urine Protein Negative (Negative) Urine Glucose (UA) Negative (Negative) Medications Administered Current Inpatient Medications Buprenorphine HCl (Buprenorphine Hcl 2 Mg Subl) 4 mg SL BID AMAN Stop: 11/02/25 20:59 Clonidine HCl (Clonidine Hcl 0.1 Mg Tab) 0.1 mg PO Q6H PRN PRN Reason: Hypertension Stop: 11/02/25 08:51 Dextrose (Dextrose 50% 50 Ml Syringe) 25 - 50 ml IV UD PRN; Protocol PRN Reason: Hypoglycemia Protocol Stop: 11/02/25 08:51 Diphenhydramine HCl (Diphenhydramine 50 Mg/Ml Vial) 12.5 mg IV Q6H PRN PRN Reason: Itching Stop: 11/02/25 10:28 Last Admin: 10/03/25 10:54 Dose: 12.5 mg Enoxaparin Sodium (Enoxaparin Inj 40 Mg/0.4 Ml Syr) 40 mg SQ Q24H [facility] Stop: 11/02/25 08:59 Last Admin: 10/03/25 10:45 Dose: Not Given Glucagon (Glucagon For Inj 1 Mg Vial) 1 mg SQ UD PRN; Protocol PRN Reason: Hypoglycemia Protocol Stop: 11/02/25 08:51 Glucose (Glucose 40% Gel 15 Gm Tube) 15 - 30 gm PO UD PRN; Protocol PRN Reason: Hypoglycemia Protocol Stop: 11/02/25 08:51 Glucose (Glucose 10 Tab/Tube) 4 - 8 tab PO UD PRN; Protocol PRN Reason: Hypoglycemia Protocol Stop: 11/02/25 08:51 Hydralazine HCl (Hydralazine Hcl 20 Mg/Ml Vial) 10 mg IV Q6H PRN PRN Reason: Blood Pressure - High Stop: 11/02/25 07:59 Hydromorphone HCl (Hydromorphone Inj 0.5 Mg/0.5 Ml Syr) 0.5 mg IV Q4H PRN PRN Reason: Mod-Sev Pain (Scale 4-10) Stop: 10/17/25 08:51 Last Admin: 10/03/25 13:54 Dose: 0.5 mg Famotidine (Pepcid 20mg Iv Push) 20 mg in 5 mls @ 2.5 mls/min IV Q12H [facility] Stop: 11/02/25 08:59 Last Admin: 10/03/25 10:41 Dose: 2.5 mls/min Lactated Ringer's (Lr) 1,000 mls @ 125 mls/hr IV .Q8H [facility] Stop: 10/06/25 08:51 Last Admin: 10/03/25 09:45 Dose: 125 mls/hr Insulin Aspart (Insulin Aspart Per Unit Charge) 0 units SC Q6 [facility] Stop: 11/02/25 08:51 Last Admin: 10/03/25 12:07 Dose: Not Given Insulin Glargine (Lantus Per Unit Charge) 10 units SQ DAILY [facility] Stop: 11/02/25 08:59 Last Admin: 10/03/25 09:47 Dose: 10 units Miscellaneous (Carbohydrates For Hypoglycemia ) 15 - 30 gm PO UD PRN PRN Reason: Hypoglycemia Protocol Stop: 11/02/25 08:51 Ondansetron HCl (Ondansetron Inj 2 Mg/Ml 2 Ml Vial) 4 mg IV Q6H PRN PRN Reason: Nausea Stop: 11/02/25 08:51 Last Admin: 10/03/25 09:49 Dose: 4 mg
[2025-10-04] MEDS: HYDROmorphone INJ 0.5 MG/0.5 ML SYR IV STA (01:08)
[2025-10-04] MEDS: NITROGLYCERIN 2% OINTMENT 30GM TUBE EXT SCH (05:35)
[2025-10-04] MEDS: LABETALOL HCL IV 5 MG/ML 20ML IV PRN (06:42)
[2025-10-04 07:01] LABS: Alanine Aminotransferase 20.0 U/L (7-52); Albumin Globulin Ratio 1.7 (0.9-2); Albumin Level 4.3 gm/dl (3.4-5.0); Alkaline Phosphatase 82.0 U/L (34-104); Anion Gap 9.0 (3-11); Bilirubin,Total 4.1 mg/dl (0.2-1.0); Blood Urea Nitrogen 11.0 mg/dl (6-23); Calcium 8.8 mg/dl (8.6-10.3); Carbon Dioxide 29.0 mmol/L (21-32); Chloride 97.0 mmol/L (98-107); Creatinine Clr Calc Pharmacy 147.4 ml/min; Globulin 2.6 gm/dl (2.5-4.0); Glucose 112.0 mg/dl (70-99(Fasting)); Magnesium 1.8 mg/dl (1.7-2.4); Potassium 3.4 mmol/L (3.5-5.1); Sodium 135.0 mmol/L (136-145); Total Protein 6.9 gm/dl (6.0-8.3)
--- NOTE | 2025-10-04 07:09 | Gastroenterology Progress Note ---
Date of Service October 04, 2025 Assessment & Plan (1) Nausea & vomiting: Plan: Will proceed with endoscopy for further evaluation. (2) Abdominal pain, acute: Plan: Will proceed with endoscopy for further evaluation Admission and Anticipated Discharge Date Admission Date: October 03, 2025 Subjective Still with abdominal pain and nausea no recent vomiting no shortness of breath no chest pain Physical Exam Physical Exam: No acute distress Respiratory rate regular Cardiac rhythm regular Abdomen soft epigastric tenderness Results & Data Results & Data Vital Signs (Past 12 Hours) Vital Signs Temp Pulse Pulse Pulse Resp BP BP 10/04/25 06:54 36.5 C 91 H 22 10/04/25 06:42 36.4 C L 100 H 22 10/04/25 06:42 100 H 188/123 H 10/04/25 05:07 36.8 C 97 H 19 10/04/25 02:17 101 H 179/123 H 10/03/25 23:41 10/03/25 22:35 36.7 C 88 18 191/125 H BP Pulse Ox O2 Del Method 10/04/25 06:54 147/92 H 97 Room Air 10/04/25 06:42 188/123 H 99 Room Air 10/04/25 06:42 10/04/25 05:07 185/121 H 98 Room Air 10/04/25 02:17 166/109 H 10/03/25 23:41 169/109 H 10/03/25 22:35 195/120 H 97 Room Air PG Care Time/CCT Total # of Minutes Spent Total Time Spent with Patient: Total time spent is greater than 50% in coordination of care (as documented) at patient's floor/unit and/or counseling patient: Coding Level of Care Code 87544 SUB INP/OBS CARE 2/35MIN Diagnoses Nausea & vomiting R11.2 Abdominal pain, acute R10.9
[2025-10-04 07:17] LABS: Hematocrit (blood only) 38.8 % (42.0-52.0); Hemoglobin 14.7 g/dL (14.0-18.0); Mean Corpuscular Hemoglobin 30.8 pg (25.0-34.0); Mean Corpuscular Volume 81.2 fL (80.0-100.0); Platelet Count 257 K/uL (130-400); RDW Standard Deviation 34.3 fL (36.4-46.3); Red Blood Count 4.78 M/uL (4.70-6.10); White Blood Count 7.56 K/ul (4.8-10.8)
[2025-10-04 07:23] LABS: Immature Granulocytes # (auto) 0.03 K/uL (0.01-0.20); Immature Granulocytes % (auto) 0.4 %; Polychromasia 1+
[2025-10-04 07:46] LABS: Hemoglobin A1C 5.7 % (4.5-5.6)
--- NOTE | 2025-10-04 08:53 | Anesthesiology Consultation ---
Date of Service October 04, 2025 Assessment & Plan (1) Encounter for pre-operative examination: Chart Review Chart Review: Acceptable Risk for Surgery and Patient NOT seen in Pre Admission Testing Consults Requested none History Surgery Operation Date: 10/04/25 09:00 Proposed Procedures p Esophagogastroduodenoscopy - Jimmy Barnes MD Height/Weight Height: 6 ft Weight: 81.42 kg Allergies Allergy/AdvReac Type Severity Reaction Status Date / Time codeine Allergy Intermediate Hives Verified 10/04/25 09:27 Medications Home Medications Medication Instructions Recorded Confirmed Last Taken buprenorphine HCl 8 mg sublingual 8 mg sublingual BID 10/03/25 10/03/25 Unknown tablet insulin glargine 100 unit/mL (3 20 unit subcut DAILY 10/03/25 10/03/25 Unknown mL) subcutaneous pen (Lantus Solostar U-100 Insulin) insulin lispro 100 unit/mL 1 sliding scale dose subcut 10/03/25 10/03/25 Unknown subcutaneous pen USEASDIRECTD metformin 500 mg tablet 500 mg PO BID 10/03/25 10/03/25 Unknown Active Medications Generic Name Dose Route Start Last Admin Trade Name Freq PRN Reason Stop Dose Admin Buprenorphine HCl 4 mg 10/03/25 21:00 10/03/25 21:33 Buprenorphine Hcl 2 Mg Subl SL 11/02/25 20:59 4 mg BID AMAN Administration Diphenhydramine HCl 12.5 mg 10/03/25 10:29 10/03/25 23:52 Diphenhydramine 50 Mg/Ml Vial IV 11/02/25 10:28 12.5 mg Q6H PRN Administration Itching Enoxaparin Sodium 40 mg 10/03/25 09:00 10/03/25 10:45 Enoxaparin Inj 40 Mg/0.4 Ml Syr SQ 11/02/25 08:59 Not Given Q24H AMAN Hydromorphone HCl 0.5 mg 10/03/25 13:39 10/04/25 02:11 Hydromorphone Inj 0.5 Mg/0.5 Ml Syr IV 10/17/25 08:51 0.5 mg Q4H PRN Administration Mod-Sev Pain (Scale 4-10) Famotidine 20 mg in 5 mls @ 2.5 mls/min 10/03/25 09:00 10/03/25 21:33 Pepcid 20mg Iv Push IV 11/02/25 08:59 2.5 mls/min Q12H AMAN Administration Lactated Ringer's 1,000 mls @ 125 mls/hr 10/03/25 08:52 10/04/25 01:16 Lr IV 10/06/25 08:51 125 mls/hr .Q8H AMAN Administration Potassium Chloride 10 meq in 100 mls @ 100 mls/hr 10/04/25 08:30 10/04/25 09:07 K Alex / Wtr IV 10/04/25 10:29 100 mls/hr Q1H AMAN Administration Insulin Aspart 0 units 10/03/25 08:52 10/04/25 06:32 Insulin Aspart Per Unit Charge SC 11/02/25 08:51 Not Given Q6 AMAN Insulin Glargine 10 units 10/03/25 09:00 10/03/25 09:47 Lantus Per Unit Charge SQ 11/02/25 08:59 10 units DAILY AMAN Administration Labetalol HCl 10 mg 10/04/25 06:30 10/04/25 06:42 Labetalol Hcl Iv 5 Mg/Ml 20ml IV 11/03/25 06:29 10 mg Q4H PRN Administration Hypertension Nitroglycerin 0.5 inch 10/04/25 06:00 10/04/25 05:35 Nitroglycerin 2% Ointment 30gm Tube EXT 11/03/25 05:59 0.5 inch Q6H AMAN Administration Ondansetron HCl 4 mg 10/03/25 08:52 10/03/25 09:49 Ondansetron Inj 2 Mg/Ml 2 Ml Vial IV 11/02/25 08:51 4 mg Q6H PRN Administration Nausea Past Medical History Medical History (Updated 10/04/25 @ 09:27 by Jacobo Rausch MD) Encounter for pre-operative examination Abdominal pain, acute Hyperbilirubinemia Nausea & vomiting 45-year-old male with past medical history significant for diabetes, ADHD, anxiety, ongoing drug abuse, history of hypertension, history of hepatitis C in the past several years ago status post treatment presents with ongoing abdominal pain and nausea and vomiting. Patient having left upper quad abdominal pain going on for about a week now. Associated with nausea and vomiting. This is his third ER visit in the last 1 week. Was at [place] and [facility]. Yesterday at [place] ER bilirubin was 3.7. Seems patient occasionally use marijuana. History of IV drug abuse in the past with cocaine. Patient recently snorted amphetamines. Denies doing IV drug abuse currently. Vaping for last about a year. Denies any alcohol use. Social History Smoking Status: Current every day smoker Hx Alcohol Use: No Hx Substance Use: Yes substance use type: marijuana, amphetamines and prescription drug Last Used Substance: Days (ago) Physical Exam Vital Signs Last Vital Signs Temp 36.5 C 10/04/25 06:54 Pulse 93 H 10/04/25 06:57 Resp 22 10/04/25 06:54 BP 151/93 H 10/04/25 06:57 Pulse Ox 97 10/04/25 06:54 O2 Del Method Room Air 10/04/25 06:54 Testing Laboratory Results 10/04/25 06:07 10/04/25 06:07 PT 14.1 Seconds (9.0-12.0) H 10/03/25 03:18 INR 1.4 (0.9-1.1) H 10/03/25 03:18 APTT 21 Seconds (21-31) 10/03/25 03:18 Hemoglobin A1c 5.7 % (4.5-5.6) H 10/04/25 06:07 Urine Color Yellow 10/03/25 04:02 Urine Appearance Clear (Clear) 10/03/25 04:02 Urine pH 7.5 (4.5-7.5) 10/03/25 04:02 Ur Specific Dows 1.027 (1.000-1.030) 10/03/25 04:02 Urine Protein Negative (Negative) 10/03/25 04:02 Urine Glucose (UA) Negative (Negative) 10/03/25 04:02 Urine Ketones 1+ (Negative) H 10/03/25 04:02 Urine Nitrite Negative (Negative) 10/03/25 04:02 Ur Leukocyte Esterase Negative (Negative) 10/03/25 04:02 10/04/25 10/04/25 10/04/25 09:22 06:53 05:53 POC Glucose 122 H 117 H 83 10/03/25 23:41 POC Glucose 114 H Electrocardiogram Date: 10/03/25 Findings: + ST @ (114) Other Testing chest CT 10/03/25: IMPRESSION: 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 Tiny calcified granuloma is noted in right lower lobe. No evidence of pulmonary embolism or pulmonary disease.
[2025-10-04] MEDS: POTASSIUM CHLORIDE / WTR 10 MEQ/100 ML PLCT IV SCH (09:07)
[2025-10-04] MEDS ORDERED: LIDOCAINE 2% 2 ML VIAL/AMP(20MG/ML) INFIL ONE ×2 (09:18)
[2025-10-04] MEDS ORDERED: PROPOFOL IV EMULSION 10 MG/ML 20 ML VIAL IV ONE (09:18)
[2025-10-04] MEDS ORDERED: ONDANSETRON INJ 2 MG/ML 2 ML VIAL IV PRN (09:31)
[2025-10-04] MEDS ORDERED: ATROPINE SULFATE 0.1 MG/ML 10ML SYR IV PRN (09:31)
--- NOTE | 2025-10-04 09:57 | GI REPORT ---
[facility] Patient: PAPI QUIROZ : 1980 Sex at : Male Age: 45 Years Procedure: Upper GI endoscopy Date: 10/04/2025 Attending Physician: Jimmy Barnes MD Referring MD: Referred Self; Barry Velasquez Indications: - Nausea and vomiting Medications: - Monitored Anesthesia Care Complications: - No immediate complications. Procedure: - Prior to the procedure, a History and Physical was performed, and patient medications and allergies were reviewed. The patient's tolerance of previous anesthesia was also reviewed. The risks and benefits of the procedure and the sedation options and risks were discussed with the patient. All questions were answered, and informed consent was obtained. [Anticoagulant Agents] [Days Prior to Procedure]. [ASA Grade]. After reviewing the risks and benefits, the patient was deemed in satisfactory condition to undergo the procedure. - The egd scope was introduced through the mouth and advanced to the second part of the duodenum. - The upper GI endoscopy was accomplished without difficulty. - The patient tolerated the procedure well. Findings: - The examined esophagus was normal. - Patchy mild inflammation characterized by erythema was found in the gastric body and in the gastric antrum. Biopsies were taken with a cold forceps for Helicobacter pylori testing. - The examined duodenum was normal. Impression: - Normal esophagus. - Gastritis, characterized by erythema. Biopsied. - Normal examined duodenum. Recommendation: - Resume previous diet. - Patient has a contact number available for emergencies. The signs and symptoms of potential delayed complications were discussed with the patient. Return to normal activities tomorrow. Written discharge instructions were provided to the patient. Procedure Code(s): - 53435, Esophagogastroduodenoscopy, flexible, transoral; with biopsy, single or multiple Diagnosis Code(s): - K29.70, Gastritis, unspecified, without bleeding CPT(R) - 202 copyright [employer]. All Rights Reserved. The CPT codes, CCI edits and ICD codes generated are intended as suggestions and were generated based on input data. These codes are preliminary and upon emergency management specialist review may be revised to meet current compliance and payer requirements. The provider is responsible for the final determination of appropriate codes, and modifiers. Jimmy Barnes MD This document has been electronically signed. Note Initiated:10/04/2025 Note Completed:10/04/2025 9:56 AM [id number]
--- NOTE | 2025-10-04 11:14 | Anesthesiology Progress Note ---
Date of Service October 04, 2025 Anesthesia Post Procedure Vital Signs Vital Signs: Temp Pulse Pulse Pulse Pulse Resp BP 10/04/25 10:15 36.5 C 95 H 18 10/04/25 10:05 95 H 16 10/04/25 09:57 36.2 C L 93 H 17 10/04/25 09:27 36.4 C L 97 H 20 10/04/25 06:57 93 H 151/93 H 10/04/25 06:54 36.5 C 91 H 22 10/04/25 06:42 36.4 C L 100 H 22 10/04/25 06:42 100 H 188/123 H 10/04/25 05:07 36.8 C 97 H 19 10/04/25 02:17 101 H 10/03/25 23:41 10/03/25 22:35 36.7 C 88 18 10/03/25 15:16 36.9 C 104 H 17 BP BP Pulse Ox O2 Del Method O2 Flow Rate 10/04/25 10:15 123/70 94 Room Air 10/04/25 10:05 107/63 97 Oxymask 2 10/04/25 09:57 93/56 L 97 Oxymask 4 10/04/25 09:27 158/103 H 97 Room Air 10/04/25 06:57 10/04/25 06:54 147/92 H 97 Room Air 10/04/25 06:42 188/123 H 99 Room Air 10/04/25 06:42 10/04/25 05:07 185/121 H 98 Room Air 10/04/25 02:17 179/123 H 166/109 H 10/03/25 23:41 169/109 H 10/03/25 22:35 191/125 H 195/120 H 97 Room Air 10/03/25 15:16 154/98 H 99 Room Air Pain Intensity Abdomen: Pain Intensity: 9 Transfer of Care Handoff Completed per policy Notes Mental Status: alert / awake / arousable and participated in evaluation Patient Amnestic to Procedure: Yes Nausea / Vomiting: adequately controlled Pain: adequately controlled Airway Patency, RR, SpO2: stable & adequate BP & HR: stable & adequate Hydration State: stable & adequate Anesthetic Complications: no major complications apparent and Pt Satisfied with anesthetic care
[2025-10-04] MEDS: SUCRALFATE 1 GM/10 ML UDC PO SCH (13:42)
[2025-10-04] MEDS: PANTOprazole 40 MG/10 ML SYR IV SCH (13:43)
--- NOTE | 2025-10-04 13:53 | Electrocardiogram Report ---
Test Reason : Blood Pressure : */* mmHG Vent. Rate : 114 BPM Atrial Rate : 114 BPM P-R Int : 126 ms QRS Dur : 74 ms QT Int : 332 ms P-R-T Axes : 52 33 51 degrees QTcB Int : 457 ms Sinus tachycardia Otherwise normal ECG No previous ECGs available Confirmed by Ced Reyes ([id number]) on 10/04/2025 1:52:51 PM Referred By: REFERRED SELF Confirmed By: Ced Reyes
--- NOTE | 2025-10-04 15:50 | Hospitalist Progress Note ---
Date of Service October 04, 2025 Assessment & Plan (1) Nausea & vomiting: Plan: 45-year-old male with past medical history significant for diabetes, ADHD, anxiety, ongoing drug abuse, history of hypertension, history of hepatitis C in the past several years ago status post treatment presents with ongoing abdominal pain and nausea and vomiting. Patient having left upper quad abdominal pain going on for about a week now. Associated with nausea and vomiting. This is his third ER visit in the last 1 week. Was at [place] and [facility] ER. Yesterday at [place] ER bilirubin was 3.7. Seems patient occasionally use marijuana. History of IV drug abuse in the past with cocaine. Patient recently snorted amphetamines. Denies doing IV drug abuse currently. Vaping for last about a year. Denies any alcohol use. Has some headache. Has some dizziness. No runny nose or sore throat. No cough. No difficulty swallowing. Denies any chest pain. No shortness of breath. No diarrhea or constipation. Micturating okay. No rash. Afebrile. Hemodynamics are okay. Patient has been not going to doctors for long time as per the . Acute gastritis-EGD on 10/04/2025 Persistent nausea and vomiting and abdominal pain For about a week Causes are multifactorial::Likely secondary to use of multiple drugs including marijuana, cocaine, amphetamines and trying to cut down the doses of methadone Bilirubin 4.2. AST 424. ALT 26. Alkaline phos was 96. CT abdomen pelvis shows mild splenomegaly. Hepatomegaly with hepatic steatosis. CTA chest aneurysm dilatation of ascending aorta 4 cm. No PE. Tiny calcified granuloma in right lower lobe. Will keep patient n.p.o., IV fluids, IV pain meds., IV antiemetics as needed IV Pepcid Appreciate GI input and recommendation Continue to have epigastric pain nausea and vomiting and he is status post EGD on 10/04/2025 His famotidine was changed to Protonix IV twice daily and added sucralfate Getting symptomatic management for nausea and vomiting Hypertension with hypertension urgency Used to be on lisinopril in the past but currently not taking any medications He was transferred to telemetry unit and was put on Nitropaste and also got intravenous labetalol Nitropaste has been discontinued due to headache Blood pressure seems to be controlled now but will continue with clonidine as needed for high blood pressure patient As he used to use lisinopril we can put that medicine back on if needed on disc harge Hepatitis C Follow-up HCVRNA History of hepatitis C infection many years ago as per and was treated and seemed to cleared Seems ongoing drug use Hepatitis C antibody is positive and low Ongoing drug abuse and vaping On Subutex He has been cutting down Subutex and now he is getting 4 mg twice daily Diabetes Cut back on Lantus 10 as currently patient is n.p.o. Hold metformin Sliding scale Will monitor History of ADHD and anxiety Currently not any meds. DVT prophylaxis Lovenox Disposition Medical floor Full code. I spent a total of 57 minutes examining the patient, discussion about the results of investigations and also managing care. Dr Logan Velasquez Admission and Anticipated Discharge Date Admission Date: October 03, 2025 Subjective 10/03/2025 The patient was seen and examined in medical floor He has been complaining of severe abdominal pain with nausea and vomiting Clinically not any better Denies any chest pain, palpitation or shortness of breath. No fever and no chills 10/04/2025 The patient was seen and examined in telemetry unit in presence of the family members He has been complaining of epigastric pain with nausea and vomiting since admission He has had an EGD today and shows acute gastritis Noted to have very high blood pressure and was transferred to telemetry unit for continued care Review of Systems Review of Systems: All systems reviewed and are unremarkable except as noted below Physical Exam Physical Exam: Lying in bed with acute distress due to abdominal pain, nausea and vomiting Constitutional: well developed, well nourished, + ill appearing and average body habitus Eyes: PERRL, conjunctivae normal, anicteric sclerae ENMT: external ear and nose normal, oropharynx normal Neck: trachea midline, no thyromegaly Respiratory: no respiratory distress Auscultation: + lungs not clear to auscultation Cardiovascular: Rate/Rhythm: regular rate, regular rhythm and + tachycardic Heart Sounds: normal S1 and normal S2; no murmur Extremities: no edema Gastrointestinal (Abdomen): Inspection/Auscultation: normal bowel sounds; abdomen not distended Percussion/Palpation: + abdomen tender ( tender mainly in the epigastric region without guarding and no rigidity) and abdomen soft Neurologic: normal touch/pain/proprioception and moves all extremities; no focal motor deficits Lymphatic: no cervical or axillary lymphadenopathy Results & Data Results & Data Vital Signs (Past 12 Hours) Vital Signs Temp Pulse Pulse Pulse Pulse Resp BP 10/04/25 12:02 88 135/86 10/04/25 11:44 98 H 178/112 H 10/04/25 11:15 36.6 C 91 H 18 10/04/25 10:15 36.5 C 95 H 18 10/04/25 10:05 95 H 16 10/04/25 09:57 36.2 C L 93 H 17 10/04/25 09:27 36.4 C L 97 H 20 10/04/25 06:57 93 H 151/93 H 10/04/25 06:54 36.5 C 91 H 22 10/04/25 06:42 36.4 C L 100 H 22 10/04/25 06:42 100 H 188/123 H 10/04/25 05:07 36.8 C 97 H 19 BP BP Pulse Ox O2 Del Method O2 Flow Rate 10/04/25 12:02 10/04/25 11:44 10/04/25 11:15 177/122 H 94 Room Air 10/04/25 10:15 123/70 94 Room Air 10/04/25 10:05 107/63 97 Oxymask 2 10/04/25 09:57 93/56 L 97 Oxymask 4 10/04/25 09:27 158/103 H 97 Room Air 10/04/25 06:57 10/04/25 06:54 147/92 H 97 Room Air 10/04/25 06:42 188/123 H 99 Room Air 10/04/25 06:42 10/04/25 05:07 185/121 H 98 Room Air Laboratory Results Short CBC 10/04/25 Range/Units 06:07 WBC 7.56 (4.8-10.8) K/ul Hgb 14.7 (14.0-18.0) g/dL Hct 38.8 L (42.0-52.0) % Plt Count 257 (130-400) K/uL BMP 10/04/25 06:07 Sodium 135 L Potassium 3.4 L Chloride 97 L Carbon Dioxide 29 BUN 11 Creatinine 0.68 Glucose 112 H Calcium 8.8 Liver Function 10/04/25 Range/Units 06:07 Total Bilirubin 4.1 H (0.2-1.0) mg/dl Direct Bilirubin 0.4 H (0-0.2) mg/dl AST 19 (13-39) U/L ALT 20 (7-52) U/L Alkaline Phosphatase 82 (34-104) U/L Albumin 4.3 (3.4-5.0) gm/dl Medications Administered Current Inpatient Medications Atropine Sulfate (Atropine Sulfate 0.1 Mg/Ml 10ml Syr) 0.5 mg IV Q1M PRN PRN Reason: PACU Use-HR<40 &/or Bradycardi Stop: 10/04/25 17:31 Buprenorphine HCl (Buprenorphine Hcl 2 Mg Subl) 4 mg SL BID AMAN Stop: 11/02/25 20:59 Last Admin: 10/04/25 10:39 Dose: 4 mg Clonidine HCl (Clonidine Hcl 0.1 Mg Tab) 0.1 mg PO Q6H PRN PRN Reason: Hypertension Stop: 11/03/25 06:29 Dextrose (Dextrose 50% 50 Ml Syringe) 25 - 50 ml IV UD PRN; Protocol PRN Reason: Hypoglycemia Protocol Stop: 11/02/25 08:51 Diphenhydramine HCl (Diphenhydramine 50 Mg/Ml Vial) 12.5 mg IV Q6H PRN PRN Reason: Itching Stop: 11/02/25 10:28 Last Admin: 10/03/25 23:52 Dose: 12.5 mg Enoxaparin Sodium (Enoxaparin Inj 40 Mg/0.4 Ml Syr) 40 mg SQ Q24H AMAN Stop: 11/02/25 08:59 Last Admin: 10/04/25 10:33 Dose: 40 mg Ephedrine Sulfate (Ephedrine Sulfate 50 Mg/Ml Amp) 5 mg IV Q5M PRN PRN Reason: PACU Use Only-SBP<90 Stop: 10/04/25 17:31 Glucagon (Glucagon For Inj 1 Mg Vial) 1 mg SQ UD PRN; Protocol PRN Reason: Hypoglycemia Protocol Stop: 11/02/25 08:51 Glucose (Glucose 40% Gel 15 Gm Tube) 15 - 30 gm PO UD PRN; Protocol PRN Reason: Hypoglycemia Protocol Stop: 11/02/25 08:51 Glucose (Glucose 10 Tab/Tube) 4 - 8 tab PO UD PRN; Protocol PRN Reason: Hypoglycemia Protocol Stop: 11/02/25 08:51 Hydromorphone HCl (Hydromorphone Inj 0.5 Mg/0.5 Ml Syr) 0.5 mg IV Q4H PRN PRN Reason: Mod-Sev Pain (Scale 4-10) Stop: 10/17/25 08:51 Last Admin: 10/04/25 11:43 Dose: 0.5 mg Lactated Ringer's (Lr) 1,000 mls @ 125 mls/hr IV .Q8H AMAN Stop: 10/06/25 08:51 Last Admin: 10/04/25 10:32 Dose: 125 mls/hr Pantoprazole Sodium (Protonix) 40 mg in 10 mls @ 5 mls/min IV BID [facility] Stop: 11/03/25 12:44 Last Admin: 10/04/25 13:43 Dose: 5 mls/min Insulin Aspart (Insulin Aspart Per Unit Charge) 0 units SC Q6 [facility] Stop: 11/02/25 08:51 Last Admin: 10/04/25 12:21 Dose: Not Given Insulin Glargine (Lantus Per Unit Charge) 10 units SQ DAILY [facility] Stop: 11/02/25 08:59 Last Admin: 10/04/25 10:59 Dose: Not Given Labetalol HCl (Labetalol Hcl Iv 5 Mg/Ml 20ml) 10 mg IV Q4H PRN PRN Reason: Hypertension Stop: 11/03/25 06:29 Last Admin: 10/04/25 11:44 Dose: 10 mg Miscellaneous (Carbohydrates For Hypoglycemia ) 15 - 30 gm PO UD PRN PRN Reason: Hypoglycemia Protocol Stop: 11/02/25 08:51 Ondansetron HCl (Ondansetron Inj 2 Mg/Ml 2 Ml Vial) 4 mg IV Q6H PRN PRN Reason: Nausea Stop: 11/02/25 08:51 Last Admin: 10/03/25 09:49 Dose: 4 mg Ondansetron HCl (Ondansetron Inj 2 Mg/Ml 2 Ml Vial) 4 mg IV ONCE PRN PRN Reason: PACU Use Only-Nausea/Vomiting Stop: 10/04/25 17:31 Sucralfate (Sucralfate 1 Gm/10 Ml Udc) 1 gm PO QID AMAN Stop: 11/03/25 12:59 Last Admin: 10/04/25 13:42 Dose: 1 gm
[2025-10-04 19:13] VITALS: O2SAT 96
[2025-10-05] MEDS: HYDROmorphone INJ 0.5 MG/0.5 ML SYR IV STA (01:42)
[2025-10-05 06:01] LABS: Hepatitis C Vira RNA (Log) PCR <1.18 NOT DETECTED Log IU/mL (NOT DETECTED)
[2025-10-05 06:35] LABS: Hematocrit (blood only) 36.5 % (42.0-52.0); Hemoglobin 13.6 g/dL (14.0-18.0); Immature Granulocytes # (auto) 0.02 K/uL (0.01-0.20); Immature Granulocytes % (auto) 0.4 %; Mean Corpuscular Hemoglobin 30.3 pg (25.0-34.0); Mean Corpuscular Volume 81.3 fL (80.0-100.0); Platelet Count 211 K/uL (130-400); RDW Standard Deviation 33.8 fL (36.4-46.3); Red Blood Count 4.49 M/uL (4.70-6.10); White Blood Count 5.28 K/ul (4.8-10.8)
[2025-10-05] MEDS: LORazepam Inj 0.5 MG in SYRINGE 0.25 ML IV STA (06:40)
[2025-10-05 07:06] VITALS: BP 152/100; RESP 18; TEMP 98.1
[2025-10-05 07:10] LABS: Alanine Aminotransferase 20.0 U/L (7-52); Albumin Globulin Ratio 1.7 (0.9-2); Albumin Level 4.0 gm/dl (3.4-5.0); Alkaline Phosphatase 72.0 U/L (34-104); Anion Gap 8.0 (3-11); Bilirubin,Total 4.1 mg/dl (0.2-1.0); Blood Urea Nitrogen 10.0 mg/dl (6-23); Calcium 8.4 mg/dl (8.6-10.3); Carbon Dioxide 28.0 mmol/L (21-32); Chloride 98.0 mmol/L (98-107); Creatinine Clr Calc Pharmacy 149.6 ml/min; Globulin 2.3 gm/dl (2.5-4.0); Glucose 151.0 mg/dl (70-99(Fasting)); Potassium 3.3 mmol/L (3.5-5.1); Sodium 134.0 mmol/L (136-145); Total Protein 6.3 gm/dl (6.0-8.3)
[2025-10-05] MEDS: POTASSIUM CHLORIDE CRTAB 20 MEQ TABCR PO STA (08:26)
[2025-10-05 10:38] LABS: Hepatitis A Antibody IgM NON-REACTIVE (NON-REACTIVE); Hepatitis B Core Antibody IgM NON-REACTIVE (NON-REACTIVE)
--- NOTE | 2025-10-05 11:04 | Discharge Summary ---
Discharge Summary Date of Service October 05, 2025 Principal Dx & Hospital Course #1 = Principal Diagnosis (1) Nausea & vomitin-year-old male with past medical history significant for diabetes, ADHD, anxiety, ongoing drug abuse, history of hypertension, history of hepatitis C in the past several years ago status post treatment presents with ongoing abdominal pain and nausea and vomiting. CT abdomen pelvis shows mild splenomegaly. Hepatomegaly with hepatic steatosis. CTA chest aneurysm dilatation of ascending aorta 4 cm. No PE. Tiny calcified granuloma in right lower lobe. GI was consulted. started on IV protonix. S/p EGD yesterday which showed gastritis. No s/s acute blood loss. Feeling well today. He tolerated breakfast. BP slightly elevated this AM at 152/100. He tolerated lisinopril in the past and this was started today. explained this will take a few days to take full effect. He wishes to go home today. Advised he follow up with a PCP in 1 week. He will be sent on protonix PO BID with instructions to decrease to daily in 30 days. Mild hypokalemia which was replaced. He was advised on the risks of continued drug use. He stated he will quit. d/w at bedside who agrees with plan. Hepatitis C Follow-up HCVRNA History of hepatitis C infection many years ago as per and was treated and seemed to cleared Seems ongoing drug use Hepatitis C antibody is positive and low Ongoing drug abuse and vaping On Subutex He has been cutting down Subutex and now he is getting 4 mg twice daily Diabetes Cut back on Lantus 10 as currently patient is n.p.o. Hold metformin Sliding scale Will monitor History of ADHD and anxiety Currently not any meds. DVT prophylaxis Lovenox Disposition Medical floor Full code. I spent a total of 48 minutes coordinating, documenting, and providing care for this patient excluding time spent in the performance of separately billed services. This included personally reviewing all current laboratories and imaging studies, medical reconciliation, outpatient chart review and discussion with specialists Notes For Next Care Provider Medication Changes From Visit protonix BID lisinopril 5mg Discharge Exam Vitals and labs reviewed General: Well appearing, NAD HEENT: EOMI, PERRLA Neck: Supple Cardiac: RRR no rubs gallops or murmurs Lungs: CTA no rhonchi wheezing or rales Abd: S NT ND BS positive : Deffered MSK: Full ROM. No obvious deformities Ext: No Edema cyanosis Skin: Warm, Dry Neuro: AOx3 No focal deficits. Psych: Normal Mood Updated Medication List Medication Instructions Recorded Confirmed Type buprenorphine HCl 8 mg sublingual 8 mg sublingual BID 10/03/25 10/03/25 History tablet insulin glargine 100 unit/mL (3 20 unit subcut DAILY 10/03/25 10/03/25 History mL) subcutaneous pen (Lantus Solostar U-100 Insulin) insulin lispro 100 unit/mL 1 sliding scale dose subcut 10/03/25 10/03/25 History subcutaneous pen USEASDIRECTD metformin 500 mg tablet 500 mg PO BID 10/03/25 10/03/25 History lisinopril 5 mg tablet 5 mg PO QAM #30 tabs 10/05/25 Rx pantoprazole 40 mg tablet,delayed 40 mg PO BID 30 days #60 tabs 10/05/25 Rx release (Protonix) Hospital Stay Data Consultations 10/03/25 04:58 ED Decision to Admit Stat 10/03/25 08:52 Consult Gastroenterology Routine Procedures Performed Operation Date: 10/04/25 09:00 Actual Procedures p Esophagogastroduodenoscopy(Not Applicable) - Jimmy Barnes MD Diagnostic Imagining Performed 10/03/25 03:07 CT Abd and Pelvis [CT abd pelvis IV con only] Stat CT angio chest PE protocol Stat Pending Results Patient Have Any Pending Studies at Discharge: Yes Discharge Instructions Given to Patient (Per Discharging Provider) Please follow up with a PCP in 1-2 weeks to check your blood pressure. avoid spicy foods, chocolate, red sauces, NSAIDs such as advil ibruprofen, alieve, naproxen etc. Please call Dr Jimmy Barnes's office in 1 week to get results for pending H. pylori testing which was done during your endoscopy. H. pylori is a bacteria that can cause gastritis. After one month, decrease the protonix to once per day. Total Time Total Time Spent Total Time Spent (In Minutes): 48
--- NOTE | 2025-10-05 11:22 | XCELERA ---
[id number]
[2025-10-05] MEDS ORDERED: INSULIN ASPART PER UNIT CHARGE SC SCH (11:30)
[2025-10-05 11:47] VITALS: PULSE 95
[2025-10-09 15:43] LABS: Amphetamine Urine, Confirm 716 ng/mL (<250); Methamphetamine, Ur Confirm 10566 ng/mL (<250)
== END 2025-10-05 11:48 | disposition home or self-care (01) | DRG 392 ==
LOC: ED 02:40 → 3N 05:50 → SUATTDRO 05:50 → 3N 08:20 → 2S 10-04 06:27